=== PATIENT | female | born 1970 | race African-American/Black ===

== ENCOUNTER 2017-09-04 16:49 | Emergency (ER) | payer BC, OTHER ==
[2017-09-04 17:05] VITALS: BP 126/75; PULSE 84; TEMP 98.5; BMI 28.5
[2017-09-04] MEDS ORDERED: KETOROLAC TROMETHAMINE 60 MG/2 ML VIAL IM ONE (17:38)
[2017-09-04] MEDS ORDERED: diazePAM 5 MG TABLET PO ONE (17:38)
[2017-09-04] MEDS ORDERED: KETOROLAC TROMETHAMINE 60 MG/2 ML VIAL ONE (17:41)
[2017-09-04] MEDS ORDERED: diazePAM 5 MG TABLET ONE (17:41)
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
== END 2017-09-04 19:13 | disposition home or self-care (01) ==
LOC: JERFT 16:49
PROC: 3E0233Z Introduction of Anti-inflammatory into Muscle, Percutaneous Approach (ICD-10-PCS; principal; 2017-09-04)
DX: S16.1XXA Strain of muscle, fascia and tendon at neck level, initial encounter (principal); V43.52XA Car driver injured in collision with other type car in traffic accident, initial encounter; Y92.414 Local residential or business street as the place of occurrence of the external cause; Y93.89 Activity, other specified; Y99.8 Other external cause status
CPT/HCPCS: 72050-TC-FY; 99281-25

== ENCOUNTER 2017-09-26 12:37 | Emergency (ER) | payer OTHER ==
[2017-09-26 12:50] VITALS: BP 150/98; PULSE 91; TEMP 97.8; BMI 29.1
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
[2017-09-26] MEDS ORDERED: KETOROLAC TROMETHAMINE 60 MG/2 ML VIAL IM ONE (13:52)
[2017-09-26] MEDS ORDERED: predniSONE 20 MG TABLET (UD) PO ONE (13:52)
[2017-09-26] MEDS ORDERED: KETOROLAC TROMETHAMINE 60 MG/2 ML VIAL ONE (14:04)
[2017-09-26] MEDS ORDERED: predniSONE 20 MG TABLET (UD) ONE (14:04)
== END 2017-09-26 14:35 | disposition home or self-care (01) ==
LOC: JERFT 12:37
PROC: 3E0233Z Introduction of Anti-inflammatory into Muscle, Percutaneous Approach (ICD-10-PCS; principal; 2017-09-26)
DX: S39.012D Strain of muscle, fascia and tendon of lower back, subsequent encounter (principal); V43.52XD Car driver injured in collision with other type car in traffic accident, subsequent encounter
CPT/HCPCS: 99281-25